=== PATIENT | female | born 1985 | race Two or more races ===

== ENCOUNTER 2017-11-05 05:24 | Day surgery (SDC) | payer OTHER ==
[2017-10-29 10:44] LABS: HEMATOCRIT 36.8 % (36.0-47.0); HEMOGLOBIN 11.7 g/dL (12.0-15.5); MEAN CORPUSCULAR HEMOGLOBIN 24.7 pg (27.0-33.4); MEAN CORPUSCULAR HGB CONC 31.7 g/dL (32.0-36.0); MEAN CORPUSCULAR VOLUME 78 fl (80-97); PLATELET COUNT 356 10^3/uL (150-450); RED BLOOD COUNT 4.72 10^6/uL (3.72-5.28); RED CELL DISTRIBUTION WIDTH 15.8 % (11.5-14.0); WHITE BLOOD COUNT 4.9 10^3/uL (4.0-10.5)
[2017-10-29 11:16] LABS: ALANINE AMINOTRANSFERASE 27 U/L (9-52); ALBUMIN 4.5 g/dL (3.5-5.0); ALKALINE PHOSPHATASE 73 U/L (38-126); ANION GAP 11 (5-19); ASPARTATE AMINO TRANSFERASE 21 U/L (14-36); BILIRUBIN,DIRECT 0.1 mg/dL (0.0-0.4); BILIRUBIN,TOTAL 0.4 mg/dL (0.2-1.3); BLOOD UREA NITROGEN 12 mg/dL (7-20); CALCIUM 9.7 mg/dL (8.4-10.2); CARBON DIOXIDE 27 mmol/L (22-30); CHLORIDE 102 mmol/L (98-107); GLUCOSE 102 mg/dL (75-110); POTASSIUM 5.1 mmol/L (3.6-5.0); SODIUM 140.1 mmol/L (137-145); TOTAL PROTEIN 7.1 g/dL (6.3-8.2)
[~2017-11-05 05:24] MED LIST: CEFAZOLIN SODIUM 2 GM in DEXTROSE 5%-WATER 100 ML IV PRN; LACTATED RINGERS 1000 ML IV PRN; LIDOCAINE 0.5% INJ-PF (5 MG/ML) 50 ML SDV SUBCUT PRN; RINGERS SOLUTION,LACTATED 1,000 ML IV PRN
[2017-11-05] MEDS ORDERED: FENTANYL CITRATE INJ/PF 250 MCG/5 ML AMPULE ONE (06:43)
[2017-11-05] MEDS ORDERED: KETOROLAC TROMETHAMINE 60 MG/2 ML SDV ONE (06:43)
[2017-11-05] MEDS ORDERED: MIDAZOLAM 2 MG/2 ML INJ ONE (06:43)
[2017-11-05] MEDS ORDERED: LIDOCAINE 2% INJ-PF (20 MG/ML) 10 ML AMPUL ONE (06:43)
[2017-11-05] MEDS ORDERED: DEXAMETHASONE SOD PHOSPHATE INJ 4 MG/1 ML VIAL ONE (06:43)
[2017-11-05] MEDS ORDERED: ONDANSETRON HCL INJ/PF 4 MG/2 ML SDV ONE (06:43)
[2017-11-05] MEDS ORDERED: PROPOFOL INJ 200 MG/20 ML VIAL IV ONE (06:44)
[2017-11-05] MEDS ORDERED: ACETAMINOPHEN 100 ML IV ONE (06:44)
[2017-11-05] MEDS ORDERED: MORPHINE SULFATE 10 MG/ML INJ ONE (06:44)
[2017-11-05] MEDS ORDERED: BUPIVACAINE HCL 0.25 % INJ/PF (2.5 MG/1 ML) 30 ML VIAL ONE (07:02)
[2017-11-05] MEDS ORDERED: METHYLENE BLUE 50 MG/10 ML AMPULE ONE (08:24)
[2017-11-05] MEDS ORDERED: DIPHENHYDRAMINE HCL 50 MG/ML VIAL IV PRN (08:54)
[2017-11-05] MEDS ORDERED: OXYCODONE-ACETAMINOPHEN 5-325 MG TABLET PO PRN ×3 (08:54→11:05)
[2017-11-05] MEDS ORDERED: FENTANYL CITRATE INJ/PF 100 MCG/2 ML AMPUL IV PRN ×3 (08:54)
[2017-11-05] MEDS ORDERED: MORPHINE SULFATE 10 MG/ML INJ IV PRN ×2 (08:54→11:05)
[2017-11-05] MEDS ORDERED: ONDANSETRON HCL INJ/PF 4 MG/2 ML SDV IV PRN ×2 (08:54→11:06)
[2017-11-05] MEDS ORDERED: PROMETHAZINE HCL INJ 25 MG/1 ML VIAL IV PRN ×3 (08:54→11:06)
[2017-11-05] MEDS ORDERED: MEPERIDINE HCL/PF INJ 25 MG/1 ML DISP.SYRIN IV PRN (08:54)
[2017-11-05] MEDS ORDERED: OXYCODONE HCL IR 5 MG TABLET PO PRN (11:06)
[2017-11-05] MEDS ORDERED: NORMAL SALINE 1000 ML 1,000 ML IV ONE (12:00)
--- NOTE | 2017-11-05 13:00 | OPERATIVE REPORT E ---
Operative Report NAME: RUBINA LYONS : 1985 AGE: 32Y DATE OF SURGERY: 11/05/2017 ROOM: 209 PREOPERATIVE DIAGNOSES: 1. CHRONIC PELVIC PAIN. 2. ABNORMAL UTERINE BLEEDING UNRESPONSIVE TO MEDICAL THERAPY. 3. PREVIOUS X4. POSTOPERATIVE DIAGNOSES: 1. CHRONIC PELVIC PAIN. 2. ABNORMAL UTERINE BLEEDING UNRESPONSIVE TO MEDICAL THERAPY. 3. PREVIOUS X4. OPERATIONS: 1. Robotic total laparoscopic hysterectomy. 2. Bilateral salpingectomy remnants. 3. Cystoscopy. 4. Extensive lysis of adhesions. SURGEON: Valorie Chapa ANESTHESIA: General. ESTIMATED BLOOD LOSS: 150 mL. INTRAVENOUS FLUIDS: 1900 mL normal saline. URINE OUTPUT: 300 mL clear urine. COMPLICATIONS: None. INDICATIONS: The patient is a 32-year-old G4, P4-0-0-4 with a history of chronic pelvic pain and abnormal uterine bleeding unresponsive to medical therapy with a history of previous x4. The patient desired definitive surgical management. The patient counseled extensively on the procedure risks including but not limited to bleeding, infection, injury to surrounding organs or tissue including bowel or bladder and need of exploratory laparotomy in case there is bleeding at the surgical procedure that cannot be identified or controlled via laparoscopy. The patient agreed and counseled and consented to procedure and understood and agreed to proceed to the operating room. FINDINGS: A soft boggy uterus consistent with adenomyosis. A normal right ovary. The left ovary appeared to be normal in nature but slightly twisted but with good flow and pink to the ovary and then the bilateral hydrosalpinx *------* remnants of the fallopian tube and then extensive uterine wall adhere to the anterior abdominal wall and then extensive omental adhesions periumbilical to the anterior abdominal wall. PROCEDURE: The patient was taken to the operating room. General anesthesia was induced without difficulty. The patient was placed in the dorsal lithotomy position, was sterilely prepped and draped in the usual sterile fashion. A Yoshi Hugger was placed and obtained control of core body temperature. A Gandara catheter was placed in the bladder. A single-tooth tenaculum was placed in the cervix to grasp the cervix. The cervix was dilated with a cervical os dilator. The uterus was sounded to about 6 to 7 cm of length. Two [id number]-fb-tedzu stitches around 3 and 9 o'clock were placed for anchoring sutures before placing the VCare and the VCare manipulator was attached to the uterus with a cervical ring and anchored to the stitches on the right and left. A weighted speculum and single-tooth tenaculum were removed. A horizontal supraumbilical incision was performed. A Veress needle was introduced. Insufflation of the abdomen was performed after appropriate drop test. The abdomen was insufflated with carbon dioxide until pneumoperitoneum was established. The Veress needle was removed, and the supraumbilical incision was slightly extended. A 12 mm trocar inserted and placed in the abdominal cavity. Visualization of the abdomen revealed the above findings. The right lower quadrant and then left lower quadrant ports were inserted under direct visualization. The right upper quadrant port as well as inserted under direct visualization. At this point, the anterior omental adhesions were taken down with the Vessel Seal by cautery and transecting as close as possible to the anterior abdominal wall. The anterior uterine wall adhere to the anterior abdominal wall that was taken down very slowly with the Vessel Seal by cauterizing and transecting and then the bladder edge and flap was visualized and then that was taken down nicely on its own from previous scarring and adhesions. Attention was turned to the right side of the uterus. At this point, the right aspect of the surgery was performed, and before performing the surgical cauterization and transection, good visualization to both ureters were identified and were well away from the surgical field. At this point, the right fimbriated end of the fallopian tube was cauterized, transected along the mesosalpinx all the way to the cornual region. The right round ligament was cauterized and transected. The right utero-ovarian ligament was cauterized and transected all the way down to the level of the uterus. On the contralateral side, it was performed in a similar fashion. The fimbriated end grasped, picked up, and cauterized and transected along the mesosalpinx all the way down to the cornual region. Utero-ovarian ligament cauterized and transected, and the left round ligament cauterized and transected all the way down to the level of the uterus. After dissection and pushing the bladder down even further and making sure whatever remnants of anterior uterine wall adhesion was taken down, an anterior colpotomy was completed successfully and then the VCare ring was identified upon the colpotomy performed. After performing the anterior and posterior colpotomy, connecting them in a circumscribed fashion, the uterus was removed with the cervix and fallopian tube remnants. At this time, irrigation was performed. Vaginal cuff was completely intact, and there were slightly oozing spots and those were cauterized with the bipolar. At this point, the vaginal cuff was closed with a V-Loc suture in a running fashion. FloSeal x2 was applied on top of it. Both bilateral pelvic sidewalls were hemostatic. During the closure of the vaginal cuff, I had asked Anesthesia to give the methylene blue for the cystoscopy portion. Once the vaginal cuff closure was performed, again FloSeal was applied to the vaginal cuff and the pelvic sidewalls and everything appeared to be hemostatic prior to application. Again, visualization of both right and left ureters were identified again and they were both peristalsing without any difficulty. Attention was turned to below to the cystoscopy portion. The cystoscope revealed completely normal ureters with blue hue of efflux of methylene blue coming bilaterally from the left and right ureters with excellent flow of efflux bilateral. Bladder integrity was visualized. There were no foreign bodies, injuries, or sutures identified in the bladder. Double bubble sign was also identified and integrity of the bladder was completely normal. At this point, the cystoscope was removed. A sponge stick was inserted vaginally removing any residual blood clots and blood from the vaginal mucosa. Again, survey from above also with a camera again 1 more time before removing the ports and it revealed completely hemostatic pelvis. At this point, after the cystoscope was removed and abdominal *------* all trocars were removed and the abdomen was desufflated. All the incisions were repaired, and re-approximated the supraumbilical incision was repaired with a UR-6 reapproximating fashion and then the skin was closed in the subcuticular fashion with 4-0 Monocryl at all sites. Dermabond was applied on top of all the incisions. The patient tolerated the procedure well. Marcaine 0.25% was applied around the incisions for postoperative pain control. All sponge, lap, and needle counts were correct x2. The patient did receive prophylactic IV antibiotics. The patient tolerated the procedure well and was taken to the recovery room in stable condition. DICTATING PHYSICIAN: Valorie Chapa MD [id number] PHY#: [id number] ID: [id number] JOB#: [id number] ACCT: [id number] cc:Valorie Sue
[2017-11-05] MEDS ORDERED: SUCCINYLCHOLINE CHLORIDE INJ 200 MG/10 ML VIAL ONE (13:38)
[2017-11-05] MEDS ORDERED: GLYCOPYRROLATE INJ 0.4 MG/2 ML VIAL ONE (13:38)
[2017-11-05] MEDS ORDERED: VECURONIUM BROMIDE INJ 10 MG VIAL IV ONE (13:38)
[2017-11-05] MEDS ORDERED: NEOSTIGMINE METHYLSULFATE 10 MG/10 ML VIAL ONE (13:38)
[2017-11-05 19:43] VITALS: BP 99/67
== END 2017-11-05 20:05 | disposition home or self-care (01) ==
LOC: OROUT 05:24 → 2N 11:33 → OROUT 20:05
PROVIDERS: ATTEND Obstetrics & Gynecology
PROC: 0UT74ZZ Resection of Bilateral Fallopian Tubes, Percutaneous Endoscopic Approach (ICD-10-PCS; 2017-11-05)
PROC: 8E0W4CZ Robotic Assisted Procedure of Trunk Region, Percutaneous Endoscopic Approach (ICD-10-PCS; 2017-11-05)
PROC: 0DNW4ZZ Release Peritoneum, Percutaneous Endoscopic Approach (ICD-10-PCS; 2017-11-05)
PROC: 0UT94ZZ Resection of Uterus, Percutaneous Endoscopic Approach (ICD-10-PCS; principal; 2017-11-05 07:30)
DX: G89.29 Other chronic pain (principal); R10.2 Pelvic and perineal pain; N93.9 Abnormal uterine and vaginal bleeding, unspecified; N70.11 Chronic salpingitis; K66.0 Peritoneal adhesions (postprocedural) (postinfection)
CPT/HCPCS: 86900; 86901; 36415; 86850; 85027; 81025; 80053; 88307 ×2; 58571; 49329; J2250; J0690; J1100; J1885; J3010; J3490 ×2; J2270; J0330; J2405; J7120; J2704; J0131; Q9968; S2900; 840